=== PATIENT | male | born 2000 | race African-American/Black ===

== ENCOUNTER 2025-02-18 09:09 | Emergency (ER) | payer OTHER ==
[~2025-02-18] VITALS: Ht 170.2 cm; Wt 89.0 kg
[2025-02-18 09:11] VITALS: BP 127/81; TEMP 96.9; O2SAT 98
[2025-02-18 09:47] LABS: BASO # 0.1 10^3/uL (0.0-0.2); BASO % 0.4 % (0.0-1.0); EOS # 0.0 10^3/uL (0.0-0.5); EOS % 0.1 % (0.0-3.0); LYMPH # 1.6 10^3/uL (1.5-5.0); LYMPH % 11.7 % (24.0-44.0); MONO # 0.7 10^3/uL (0.0-0.8); MONO % 4.8 % (2.0-8.0); NEUTROPHILS # 11.4 10^3/uL (1.5-8.5); NEUTROPHILS % 82.7 % (36.0-66.0); PLATELET COUNT, AUTOMATED 222 10^3/uL (150-450)
[2025-02-18 10:16] LABS: ALT/SGPT 27 U/L (7.0-40); AST/SGOT 33 U/L (<34); CALCIUM LEVEL 9.6 MG/DL (8.5-10.1); CARBON DIOXIDE LEVEL 28 MMOL/L (20-31); CHLORIDE LEVEL 104 MMOL/L (98-107); CREATININE FOR GFR 1.10 MG/DL (0.70-1.30); GLOMERULAR FILTRATION RATE > 90.0 (>60); POTASSIUM SERUM 4.5 MMOL/L (3.5-5.1); SODIUM LEVEL 141 MMOL/L (136-145)
[2025-02-18] MEDS ORDERED: META0.52 PO (10:45)
[2025-02-18] MEDS ORDERED: MIRA3350 PO (10:45)
[2025-02-18] MEDS: MAGNESIUM CITRATE 300 ML BTL PO ONE (10:55)
== END 2025-02-18 10:56 | disposition home or self-care (01) ==
LOC: M ED 09:09
DX: K59.00 Constipation, unspecified (principal); E73.9 Lactose intolerance, unspecified